=== PATIENT | male | born 1955 | race Caucasian/White ===

== ENCOUNTER 2020-06-28 14:10 | Inpatient (IN) ==
[2020-06-28] MEDS ORDERED: *HR* FentaNYL (PF) 100 MCG/2 ML VIAL ONE (14:17)
[2020-06-28] MEDS ORDERED: Ondansetron 4 MG/2 ML VIAL ONE (14:17)
[2020-06-28] MEDS ORDERED: 0.9 % Sodium Chloride 1,000 ML ONE ×2 (14:20→14:56)
[2020-06-28] MEDS ORDERED: 0.9 % Sodium Chloride 1,000 ML IVC ONE ×2 (14:31→14:55)
[2020-06-28] MEDS ORDERED: *HR* FentaNYL (PF) 100 MCG/2 ML VIAL IVP ONE (14:31)
[2020-06-28] MEDS ORDERED: Ondansetron 4 MG/2 ML VIAL IVP ONE (14:31)
[2020-06-28 14:38] LABS: Hematocrit 15.2 % (37.5-50.1); Mean Corpuscular HGB Conc 23.7 g/dL (31.6-35.5); Mean Corpuscular Hemoglobin 20.5 pg (28.0-33.3); Mean Corpuscular Volume 86.4 fL (83.0-100.0); Mean Platelet Volume 9.6 fL (9.4-12.4); Nucleated Red Blood Cells 0.9 /100 WBC (0); Platelet Count 276 K/mcL (140-400); Red Blood Count 1.76 M/mcL (4.19-5.50); Red Cell Distribution Width 21.6 % (11.5-14.5)
[2020-06-28 14:42] LABS: Hemoglobin 3.6 g/dL (12.9-16.9); White Blood Count 32.5 K/mcL (4.3-11.1)
[2020-06-28] MEDS ORDERED: Pantoprazole 40 MG VIAL IVP ONE (14:45)
[2020-06-28 14:46] LABS: INR 1.2; Prothrombin Time 13.4 Seconds (9.4-12.1)
[2020-06-28 15:03] LABS: Alanine Aminotransferase 5 Units/L (7-52); Albumin/Globulin Ratio 0.9 (1.1-2.2); Alkaline Phosphatase 85 Units/L (34-104); Aspartate Amino Transferase 7 Units/L (13-39); BUN/Creatinine Ratio 12 (6-26); Bilirubin,Indirect 0.3 mg/dL (0.0-1.0); Bilirubin,Total 0.3 mg/dL (0.3-1.0); Blood Urea Nitrogen 12 mg/dL (8-23); Calcium 8.6 mg/dL (8.6-10.3); Carbon Dioxide 9 mEq/L (23-29); Chloride 101 mEq/L (98-107); Globulin 3.3 g/dL (2.4-3.5); Glucose 417 mg/dL (70-105); Magnesium 2.1 mg/dL (1.6-2.6); Osmolality,Calculated 297 (280-300); Potassium 3.8 mEq/L (3.5-5.1); Sodium 135 mEq/L (136-145); Total Protein 6.3 g/dL (6.4-8.9); Troponin I < 0.03 ng/mL (< 0.04); eGFR For African Americans > 60 (> 60); eGFR For Non-African Americans > 60 (> 60)
[2020-06-28 15:03] LABS: Bilirubin,Urine Negative (Negative); Blood,Urine Negative (Negative); Clarity,Urine Clear (Clear); Color,Urine Yellow (Yellow); Glucose,Urine (UA) 250 mg/dL (Normal); Ketones,Urine Negative (Negative); Leukocyte Esterase,Urine Small (Negative); Nitrite,Urine Negative (Negative); PH,Urine 5.5 pH Units (5.0-8.0); Protein,Urine 100 mg/dL (Neg-Trace); Specific Gravity,Urine 1.025 (1.010-1.025); Urobilinogen,Urine Normal (Normal)
[2020-06-28 15:10] LABS: Bacteria,Urine Many per hpf (None-Few); Sperm,Urine Present (None Seen); Squamous Epithelial Cell,Urine Many per hpf (None-Few); WBC,Urine 15-30 per hpf (0-3)
[2020-06-28 15:11] LABS: RBC,Urine 0-3 per hpf (0-3)
[2020-06-28 15:16] LABS: Lymphocytes # 14.3 K/mcL (0.6-4.6); Monocytes # 0.7 K/mcL (0.0-1.3); Neutrophils # 16.9 K/mcL (1.6-8.9); Toxic Granulation Present (Not Present)
[2020-06-28 15:17] LABS: Anisocytosis 2+ (Not Present); Hypochromasia Present (Not Present)
[2020-06-28 15:18] LABS: Platelet Estimate Normal (Normal); Poikilocytosis 1+ (Not Present); Polychromasia 2+ (Not Present)
[2020-06-28 15:37] LABS: Thyroid Stimulating Hormone 0.975 mcIU/mL (0.340-5.600)
[2020-06-28] MEDS ORDERED: *HR* HYDROmorphone 2 MG/ML SYRINGE IVP PRN (15:44)
[2020-06-28] MEDS ORDERED: *HR* HYDROmorphone (PF) 1 MG/ML SYRINGE IVP ONE (15:44)
[2020-06-28] MEDS ORDERED: Morphine Sulfate 2 MG/ML SYRINGE IVP ONE (16:24)
[2020-06-28] MEDS ORDERED: Ondansetron 4 MG/2 ML VIAL IVP PRN (16:32)
[2020-06-28] MEDS ORDERED: *HR* HYDROmorphone (PF) 1 MG/ML SYRINGE IVP PRN (16:36)
[2020-06-28] MEDS ORDERED: *HR* LORazepam Oral Conc 2 MG/ML SL PRN (16:37)
[2020-06-28 17:53] LABS: Adenovirus Not Detected (Not Detect); Bordetella Pertussis Not Detected (Not Detect); Chlamydophila pneumoniae Not Detected (Not Detect); Coronavirus 229E Not Detected (Not Detect); Coronavirus HKU1 Not Detected (Not Detect); Coronavirus NL63 Not Detected (Not Detect); Coronavirus OC43 Not Detected (Not Detect); Human Metapneumovirus Not Detected (Not Detect); Human Rhinovirus/Enterovirus Not Detected (Not Detect); Influenza A Subtype 2009 H1 Not Detected (Not Detect); Influenza B Not Detected (Not Detect); Mycoplasma pneumoniae Not Detected (Not Detect); Parainfluenza Virus 1 Not Detected (Not Detect); Parainfluenza Virus 2 Not Detected (Not Detect); Parainfluenza Virus 3 Not Detected (Not Detect); Parainfluenza Virus 4 Not Detected (Not Detect); Respiratory Syncytial Virus Not Detected (Not Detect); SARS-CoV-2 Not Detected (Not Detect)
[2020-06-28] MEDS ORDERED: FentaNYL (PF) 1,000 MCG/100 ML IV.SOLN IVC SCH (19:00)
[2020-06-28] MEDS: *HR* HYDROmorphone 2 MG/ML SYRINGE IVP PRN ×2 (19:18→22:03)
[2020-06-28] MEDS ORDERED: *HR* HYDROmorphone 4 MG TABLET PO SCH (22:00)
[2020-06-28] MEDS: *HR* Promethazine 25 MG/ML VIAL IVP PRN (22:01)
[2020-06-29] MEDS: *HR* HYDROmorphone 2 MG/ML SYRINGE IVP PRN ×7 (01:52→23:19)
[2020-06-29] MEDS: *HR* Methadone 10 MG TABLET PO SCH ×3 (01:58→21:12)
[2020-06-29] MEDS: *HR* Promethazine 25 MG/ML VIAL IVP PRN (11:21)
[2020-06-29 19:34] LABS: Acinetobacter baumannii by PCR Not Detected (Not Detect); Candida albicans by PCR Not Detected (Not Detect); Candida glabrata by PCR Not Detected (Not Detect); Candida krusei by PCR Not Detected (Not Detect); Candida parapsilosis by PCR Not Detected (Not Detect); Candida tropicalis by PCR Not Detected (Not Detect); Enterobacter cloacae Cmplx PCR Not Detected (Not Detect); Enterobacteriaceae by PCR Not Detected (Not Detect); Enterococcus by PCR DETECTED (Not Detect); Escherichia coli by PCR Not Detected (Not Detect); Klebsiella oxytoca by PCR Not Detected (Not Detect); Klebsiella pneumoniae by PCR Not Detected (Not Detect); Proteus by PCR Not Detected (Not Detect); Pseudomonas aeruginosa by PCR Not Detected (Not Detect); Serratia marcescens by PCR Not Detected (Not Detect); Staphylococcus aureus by PCR Not Detected (Not Detect); Staphylococcus by PCR Not Detected (Not Detect); Streptococcus agalactiae(B)PCR Not Detected (Not Detect); Streptococcus by PCR Not Detected (Not Detect); Streptococcus pneumoniae PCR Not Detected (Not Detect); Streptococcus pyogenes (A) PCR Not Detected (Not Detect); blaKPC Carbapenem-Resist Gene Not Detected (Not Detect); mecA Methicillin-Resist Gene Not Detected (Not Detect); vanA/B Vancomycin-Resist Genes DETECTED (Not Detect)
[2020-06-29] MEDS ORDERED: Acetaminophen IV 1,000 MG/100 ML INFUS..BTL IVPB ONE (20:13)
[2020-06-29] MEDS ORDERED: *HR* Atropine Sulfate 1 MG/10 ML SYRINGE IVP ONE (22:30)
[2020-06-30] MEDS: *HR* HYDROmorphone 2 MG/ML SYRINGE IVP PRN (03:27)
[2020-06-30 07:40] VITALS: BP 100/62
[2020-06-30] MEDS: *HR* Methadone 10 MG TABLET PO SCH (09:28)
[2020-06-30] MEDS ORDERED: *HR* HYDROmorphone 4 MG TABLET PO PRN (10:58)
== END 2020-06-30 12:04 | disposition hospice, home (50) | DRG 871 ==
LOC: EMEROOARM 14:10 → 2ANU 14:10 → SUATTDRO 20:30 → 2ANU 20:58
PROVIDERS: ADMIT Internal Medicine; ATTEND Internal Medicine